=== PATIENT | female | born 1955 | race Caucasian/White ===

== ENCOUNTER → 2016-03-01 | Outpatient (CLI) | payer SELFPAY | LOC: YCFC.O 10:39 | PROVIDERS: ATTEND Nurse Practitioner Family | DX: J06.9 Acute upper respiratory infection, unspecified (principal) ==

== ENCOUNTER → 2016-09-25 | Outpatient (CLI) | payer SELFPAY ==
--- NOTE | 2016-09-25 13:47 | RAD ---
EXAM DESCRIPTION: Ankle,Left 3 Views CLINICAL HISTORY: 61 years, Female, PAIN IN LEFT ANKLE COMPARISON: None. TECHNIQUE: AP/lateral/oblique of the ankle FINDINGS: There is no bone, joint, or soft tissue abnormality. Mortise joint shows normal relationship. IMPRESSION: 1. Normal Electronically signed by: Cali Cervantes MD 09/25/2016 1:46 PM CDT
== END | disposition home or self-care (01) ==
LOC: RAD 08:42
PROVIDERS: ATTEND Orthopaedic Surgery
DX: M25.572 Pain in left ankle and joints of left foot (principal)

== ENCOUNTER → 2018-03-06 | Outpatient (CLI) | payer BC ==
--- NOTE | 2018-03-06 10:05 | RAD ---
EXAM DESCRIPTION: Chest,2 Views: CHLOE/ CLINICAL HISTORY: 63 years Female FLU COMPARISON: 2 view chest x-ray 06/15/2006. TECHNIQUE: Two views. PA and Lateral. FINDINGS: Lungs: Moderate expansion with no acute infiltrate. Pleural spaces: No effusion or pneumothorax bilaterally. Heart: Normal size. Pulmonary Vascularity: Not increased. Mediastinum: Not widened. Aorta: Unremarkable. Bony Thorax/Spine: No acute bony thoracic abnormalities. Thoracic disc space narrowing at some levels. IMPRESSION: No radiographic evidence of acute cardiopulmonary disease. Electronically signed by: Pete Roy MD 03/06/2018 10:03 AM [facility]
== END ==
LOC: LAB.O 09:31
PROVIDERS: ATTEND Family Medicine
DX: J11.1 Influenza due to unidentified influenza virus with other respiratory manifestations (principal); E11.9 Type 2 diabetes mellitus without complications

== ENCOUNTER → 2018-03-26 | Outpatient (CLI) | payer BC ==
--- NOTE | 2018-03-26 19:51 | US ---
EXAM DESCRIPTION: Soft Tissue,Head/Neck: ULTRASOUND. CLINICAL HISTORY: 63 years Female NECK MASS onset over 3 years ago. No pain. No change in size. COMPARISON: None Available. TECHNIQUE: Transcutaneous scanning: Lugo-scale and Doppler modes. FINDINGS: Scanning in the midline posterior neck palpable mass. Homogeneous fatty texture mass with wider than tall orientation and posterior acoustic enhancement. Dimensions 2.1 x 0.7 x 2.0 cm. Echogenic capsule. Nonvascular. No fluid component. Surrounded by subcutaneous adipose tissue Second area palpable shows subcutaneous adipose tissue. No distinct cyst. No dominant mass. No parenchymal edema or large calcifications. No overlying skin changes. Normal vascularity. IMPRESSION: Most likely 2.1 cm x 2 cm disc shaped lipoma in the posterior midline neck. No abnormal solid mass or cyst. Not vascular. Electronically signed by: Pete Roy MD 03/26/2018 7:48 PM [employer]
== END ==
LOC: US 11:56
PROVIDERS: ATTEND Surgery
DX: R22.1 Localized swelling, mass and lump, neck (principal)

== ENCOUNTER → 2018-05-06 | Outpatient (CLI) | payer BC ==
--- NOTE | 2018-05-07 11:00 | MAM ---
EXAM DESCRIPTION: 3D Diagnostic, Bilateral: Digital Mammography CLINICAL HISTORY: 63 yearsFemaleLUMP generalized lungs left breast.. Lifetime risk of developing breast cancer (Tyrer-Cuzick model) percentage is not calculated. COMPARISON: 2-D digital screening bilateral mammography 12/25/2014. . No prior reports available TECHNIQUE: Bilateral CC, MLO, and LM projection full-field images, digital mammographic tomosynthesis technique. Bilateral 2-D digital full-field MLO images. CAD not available FINDINGS: The breast parenchymal density pattern is: Heterogeneously dense breast tissue, which may obscure small masses. No skin thickening or nipple retraction lymph nodes in the left axilla and axillary tail. Lymph nodes in the right axillary tail. Small solitary microcalcifications. No new focal, stellate mass or density, focal asymmetry , and no suspicious microcalcifications bilaterally. Stable mammograms compared to prior study, taking into account differences in mammographic technique IMPRESSION: Benign exam. BIRAD CATEGORY: 2 BENIGN FINDINGS. RECOMMENDATIONS: FOLLOW UP: Routine digital bilateral mammographic screening, one year interval from May 2018. Written communication explaining the IMPRESSION and follow-up, will be mailed to the patient and referring health care provider. According to the [employer], yearly mammograms are recommended starting at age 40 and continuing as long as a woman is in good health. Any breast change noted on a breast self-exam should be reported promptly to the patient's healthcare provider. Breast MRI is recommended for women with an approximately 20-25% or greater lifetime risk of breast cancer, including women with a strong family history of breast or ovarian cancer and women who have been treated for Hodgkin's disease. A negative mammographic report should not delay tissue diagnosis in patients with significant clinical history or physical findings. Extremely dense breast tissue limits the sensitivity of digital mammography. Electronically signed by: Pete Roy MD 05/07/2018 10:57 AM CDT
== END ==
LOC: MAMMO 14:07
PROVIDERS: ATTEND Nurse Practitioner Family
DX: N63.0 Unspecified lump in unspecified breast (principal)
CPT/HCPCS: 77066; G0279

== ENCOUNTER → 2018-05-20 | Outpatient (CLI) | payer BC ==
--- NOTE | 2018-05-20 16:09 | RAD ---
EXAM DESCRIPTION: Foot,Left 3 Views CLINICAL HISTORY: 63 years, Female, Other hammer toe(s) COMPARISON: None TECHNIQUE: AP, lateral, and oblique views of the left foot FINDINGS: The great toe is normally aligned with mild degenerative change at the base of the toe. There is mild to modest hammertoe deformity of toes two through four and there is fusion of the middle and distal phalanx of the fifth toe with slight claw toe deformity of this toe. The metatarsals are intact. Remainder the foot is unremarkable without calcaneal spurring. IMPRESSION: Hammertoe deformity of toes two through four and mild claw toe deformity of the fifth toe with fusion of the middle and distal phalanx. Electronically signed by: Brock Kim MD 05/20/2018 4:05 PM CDT
== END ==
LOC: RAD 12:03
PROVIDERS: ATTEND Podiatrist Foot & Ankle Surgery
DX: M20.42 Other hammer toe(s) (acquired), left foot (principal); M20.5X2 Other deformities of toe(s) (acquired), left foot

== ENCOUNTER → 2018-11-11 | Outpatient (CLI) | payer BC | LOC: GMAE 10:56 | PROVIDERS: ATTEND Family Medicine | DX: Z79.899 Other long term (current) drug therapy (principal) ==

== ENCOUNTER 2018-12-02 05:13 | Day surgery (SDC) | payer BC ==
[2018-12-02] MEDS ORDERED: LACTATED RINGERS 1,000 ML ONE ×2 (07:14→10:38)
[2018-12-02] MEDS ORDERED: MIDAZOLAM INJ 2 MG/2 ML VIAL ONE (09:34)
[2018-12-02] MEDS ORDERED: LIDOCAINE 1% 10 ML VIAL INJ ONE (10:00)
[2018-12-02] MEDS ORDERED: PROPOFOL 200 MG/20 ML VIAL IV ONE (10:00)
[2018-12-02] MEDS ORDERED: ONDANSETRON INJ 4 MG/2 ML VIAL ONE (10:10)
--- NOTE | 2018-12-02 10:29 | OP ---
DATE OF PROCEDURE: 12/02/18 PREOPERATIVE DIAGNOSIS: 1. Screening colonoscopy. POSTOPERATIVE DIAGNOSIS: 1. Screening colonoscopy. PROCEDURE: 1. Colonoscopy to cecum. SURGEON: Jefry Crowder MD ANESTHESIA: General. FINDINGS: Normal colon. COMPLICATIONS: None. ESTIMATED BLOOD LOSS: None. CONDITION: Stable. PLAN: Discharge. INDICATION: As stated. PROCEDURE: General anesthesia was induced. She was placed in lateral position, comfortable. Digital rectal exam was normal. The colonoscope was then passed without much difficulty to the cecum with an adequate prep. Upon withdrawal, no significant polyps were seen. No complications. The patient tolerated the procedure. She was then awakened and taken to Recovery to be discharged. #[id number] [facility]
[2018-12-02] MEDS ORDERED: MORPHINE SULFATE INJ 10 MG/ML VIAL ONE (10:36)
[2018-12-02] MEDS ORDERED: KETOROLAC TROMETHAMINE INJ 30 MG/ML VIAL ONE (11:28)
--- NOTE | 2018-12-02 11:42 | CT ---
EXAM DESCRIPTION: Abdomen/Pelvis w/o Contrast: Computed Tomography. CLINICAL HISTORY: 63 years Female s/p colonoscopy. Pain scale 8/10 during recovery. COMPARISON: None. TECHNIQUE: Spiral-axial scans 2.5 x 2.5 mm intervals through the abdomen and pelvis without oral or IV contrast. Coronal and sagittal 2.0 mm reconstructions. Total Exam DLP: 873.78 mGy-cm. This exam was performed according to our departmental CT dose-optimization program which includes automated exposure control, adjustment of the mA and/or kV according to patient size and/or use of iterative reconstruction technique; to reduce radiation dose to as low as reasonably achievable (ALARA). FINDINGS: Small Bowel: Normal caliber with minimal gas. No mucosal thickening. Terminal Ileum/Cecum: Cecum distended by gas, with TI containing minimal gas with no mucosal thickening. Appendix not seen. Colon: Distended by gas throughout with less distention in the sigmoid colon which is moderately redundant. Several diverticula in the sigmoid containing gas. No free air under the anterior abdominal wall or abutting segments of colon. No fatty stranding. Lung bases and pleura: Groundglass densities in the inferior lingula, not focal nodules. Also linear scarring in the lingula. Groundglass subpleural densities in the superior anterior and lateral left lower lobe. Liver, stomach, spleen, and adrenal glands: Long axis of the right middle lobe 18.5 cm. Minimal fatty replacement. Spleen, adrenal glands normal size and density. Stomach unremarkable. Pancreas, Gallbladder, and Ducts: Surgical clips in the gallbladder fossa with no fluid. Pancreas is negative. Kidneys and Ureters: Unremarkable. Mesentery: No fatty stranding free air or free fluid. Aorta: Negative. Pelvic Organs: Urinary bladder minimally distended. Small uterus anteverted. Right ovary larger than left. No abnormal calcifications and no fluid in the cul-de-sac. Spine and Bony Pelvis: Minimal spondylosis in the included thoracic spine. Early arthrosis superior lateral right acetabulum. Abdominal Wall/Back Soft Tissues: Negative. IMPRESSION: 1. Physiologic distention of the colon by a air status post colonoscopy with no free air or free fluid. No pericolonic air collections. Minimal air in diverticula. No other complications. 2. Groundglass densities in the inferior lingula and the lateral aspect of the left lower lobe. Consider follow-up chest CT scan without IV contrast or enrolling patient in current low-dose CT lung cancer screening program at [facility], if patient meets screening criteria. 3. Minimal steatosis of the liver and minimal hepatomegaly. CRITICAL COMMUNICATION: The critical value was discussed directly by phone by Dr. Roy, with Dr. Crowder at approximately 1105 hours, on 02 December 2018. Electronically signed by: Pete Roy MD 12/02/2018 11:41 AM CDT
[2018-12-02 13:56] VITALS: O2SAT 98
[2018-12-02 13:58] VITALS: BP 123/70; TEMP 96.2
== END 2018-12-02 12:40 | disposition home or self-care (01) ==
LOC: AMB 05:13
PROVIDERS: ATTEND Surgery
DX: Z12.11 Encounter for screening for malignant neoplasm of colon (principal); E11.9 Type 2 diabetes mellitus without complications; G25.81 Restless legs syndrome; Z85.810 Personal history of malignant neoplasm of tongue; Z79.84 Long term (current) use of oral hypoglycemic drugs; Z79.899 Other long term (current) drug therapy
CPT/HCPCS: 00812; 36416; 45378; 74176; 82948; J1885; J2250; J2270; J2405; J3490; J7120

== ENCOUNTER → 2018-12-23 | Outpatient (CLI) | payer BC ==
--- NOTE | 2018-12-21 07:03 | CT ---
EXAM DESCRIPTION: Chest w/o Contrast CLINICAL HISTORY: 63 years, Female, ABNORMAL FINDINGS IN THE LUNGS COMPARISON: CT abdomen December 02, 2018 included the lower chest. Previous chest x-ray March 06, 2018 TECHNIQUE: Thin-section noncontrast axial CT images are obtained according to our protocol. Reconstructed MPR images are created and reviewed as well. FINDINGS: Lungs: Infiltrate in the lingula seen on the previous study has cleared. Findings are consistent with resolution of pneumonia. No consolidating infiltrate in other areas of the lungs. No pneumothorax or pleural effusion. Nodule in the posterior segment right upper lobe measures 6 mm in diameter. This is not seen on either of the previous two studies. This is dense enough to appear on the mediastinal window images. However it is not definitely calcified and therefore follow-up is recommended as per Fleischner Society criteria below. Mediastinum: Lymph nodes are normal in size. Normal vascular contours. Heart size is normal with no pericardial effusion. Chest wall/axilla: No mass or adenopathy. Breast tissue appears symmetrical. Lower neck/supraclavicular: No mass or adenopathy. Normal thyroid gland. Upper abdomen: Low density liver consistent with diffuse hepatic steatosis. The gallbladder is surgically absent. Otherwise unremarkable upper abdominal viscera. IMPRESSION: Interval clearance of left lingular infiltrate. Posterior segment right upper lobe lung nodule 6 mm. Follow-up as per recommendations below. 2017 Fleischner Society Recommendations for Single Solid Lung Nodule Follow-Up based on size (average of long- and short-axis diameters) 6-8 mm Low-Risk Patient: CT at 6-[address] at 18-24 months 6-8 mm High-Risk Patient: CT at 6-[address] at 18-24 months This exam was performed according to our departmental dose-optimization program, which includes automated exposure control, adjustment of the mA and/or kV according to patient size and/or use of iterative reconstruction technique. Total DLP equals 354.94 mGycm. Electronically signed by: Ryan Fermin MD 12/21/2018 7:01 AM [facility]
== END | disposition home or self-care (01) ==
LOC: CT 13:42
PROVIDERS: ATTEND Family Medicine
DX: R91.8 Other nonspecific abnormal finding of lung field (principal)

== ENCOUNTER → 2019-07-25 | Outpatient (CLI) | payer MEDICARE | LOC: YCFC.O 11:02 | PROVIDERS: ATTEND Family Medicine | DX: E11.9 Type 2 diabetes mellitus without complications (principal); R53.83 Other fatigue ==

== ENCOUNTER → 2019-10-27 | Outpatient (CLI) | payer MEDICARE ==
--- NOTE | 2019-10-27 10:40 | MRI ---
EXAM DESCRIPTION: Brain w/oContrast CLINICAL HISTORY: 64 years Female, TRIGEMINAL NEURALGIA COMPARISON: None. TECHNIQUE: Multisequence, multiplanar images of the brain obtained without intravenous contrast. FINDINGS: Brain Parenchyma, Ventricles, Meninges: No restricted diffusion. No acute intracranial hemorrhage. Mild general cerebral atrophy. No abnormal signal alteration of the brain parenchyma. No abnormal extra-axial fluid collection. Vascular Structures: Normal flow voids for the major intracranial arteries and dural venous sinuses. Calvarium, paranasal sinuses, mastoids, and orbits: No abnormal calvarial or skull base marrow signal changes. Mild mucosal thickening of ethmoid and left greater the right maxillary sinuses. Remaining paranasal sinuses and mastoids are clear. Grossly unremarkable orbits. IMPRESSION: 1. No acute intracranial abnormality. 2. Mild senescent changes. 3. Mild ethmoid and maxillary sinus disease. Electronically signed by: Eduardo Franco MD 10/27/2019 10:38 AM CDT
== END ==
LOC: MRI 09:05
PROVIDERS: ATTEND Family Medicine
DX: G50.0 Trigeminal neuralgia (principal); G31.89 Other specified degenerative diseases of nervous system; J34.9 Unspecified disorder of nose and nasal sinuses

== ENCOUNTER → 2019-11-11 | Outpatient (CLI) | payer MEDICARE | LOC: YCFC.O 09:50 | PROVIDERS: ATTEND Family Medicine | DX: E11.9 Type 2 diabetes mellitus without complications (principal); R74.8 Abnormal levels of other serum enzymes ==

== ENCOUNTER → 2019-11-13 | Outpatient (CLI) | payer MEDICARE ==
--- NOTE | 2019-11-14 08:19 | CT ---
EXAM DESCRIPTION: Chest w/o Contrast CLINICAL HISTORY: 64 years Female, abnormal finding on diagnostic imaging COMPARISON: CT chest 12/21/2018. TECHNIQUE: CT images through the chest without IV contrast. Multiplanar reformations provided. This exam was performed according to our departmental dose-optimization program, which includes automated exposure control, adjustment of the mA and/or kV according to patient size and/or use of iterative reconstruction technique. CT CHEST FINDINGS: Heart and mediastinum: Normal heart size. No pericardial effusion. Unremarkable esophagus. Mild atherosclerosis. Scattered based on lymph nodes measuring 6 mm short axis right paratracheal. No appreciable mediastinal adenopathy although evaluation limited without intravenous contrast. Thyroid Gland: Normal. Lungs: Unchanged 6 mm round solid pulmonary nodule in the posterior lateral inferior right upper lobe on series 4 image 51. Airways: Normal. Pleura: Normal. Musculoskeletal and Soft Tissues: No acute fracture or aggressive appearing osseous lesion. Soft tissues unremarkable. Subphrenic Structures: Hypoattenuation of the liver. Gallbladder surgically absent. IMPRESSION: 1. No acute abnormality of the chest findings noncontrast study. 2. 6 mm pulmonary nodule right upper lobe, unchanged from 12/20/2018. Single Solid lung nodule 6-8 mm: In a low-risk patient, recommend a non-contrast Chest CT at 6-12 months, then consider an additional non-contrast Chest CT at 18-24 months. In a high-risk patient, recommend a non-contrast Chest CT at 6-12 months, then another non-contrast Chest CT at 18-24 months. These guidelines do not apply to patients younger than 35 years, immunocompromised patients, and patients with cancer. F/u in patients with significant comorbidities as clinically warranted. For lung cancer screening, adhere to Lung-RADS guidelines. Reference: Radiology. 2017 Aug; 284(1):228-24 Electronically signed by: Eduardo Franco MD 11/14/2019 8:18 AM CDT
== END ==
LOC: CT 10:30
PROVIDERS: ATTEND Family Medicine
DX: R91.1 Solitary pulmonary nodule (principal); R93.89 Abnormal findings on diagnostic imaging of other specified body structures

== ENCOUNTER → 2019-11-18 | Outpatient (CLI) | payer MEDICARE ==
--- NOTE | 2019-11-18 09:43 | RAD ---
EXAM DESCRIPTION: Knee,Right Complete CLINICAL HISTORY: 64 years, Female, PAIN IN RIGHT KNEE COMPARISON: None TECHNIQUE: Three x-ray views of the right knee FINDINGS: No fracture or dislocation. Bones appear normally mineralized with normal trabecular pattern. Narrow medial compartment of the right knee joint with medial joint line spurring and mild spurring at the tibial spines. Mild posterior patellar spurring. Normal appearance of medial and lateral compartments on frontal view. Lateral view shows normal position of the patella. No patellar spurring or enthesopathy. No suprapatellar knee joint effusion. Normal contour of quadriceps and patellar tendons. Mild lateral tilt of the patella without subluxation on patellar sunrise view. Edematous changes are seen along the medial aspect of the knee joint. IMPRESSION: Degenerative narrowing of the medial compartment. Electronically signed by: Ryan Fermin MD 11/18/2019 9:42 AM CDT
== END ==
LOC: YCFC.O 09:18
PROVIDERS: ATTEND Family Medicine
DX: M17.11 Unilateral primary osteoarthritis, right knee (principal)

== ENCOUNTER → 2019-12-23 | Outpatient (CLI) | payer MEDICARE ==
--- NOTE | 2019-12-24 13:33 | MAM ---
EXAM DESCRIPTION: 3D Screening BILATERAL : Digital Mammography. CLINICAL HISTORY: 64 years Female Yearly screen . No complaints. Remote family history of breast cancer. Menarche age 10. Childbirth age 25. Menopause age 51. No HRT. Lifetime risk of developing breast cancer (Tyrer-Cuzick model)(%): 7.6. COMPARISON: Bilateral diagnostic digital breast tomosynthesis May 2018.. TECHNIQUE: Bilateral CC and MLO projection full-field images, digital tomosynthesis mammographic technique. Bilateral digital 2-D full-field MLO images. CAD available for 2-D images. FINDINGS: The breast parenchymal density pattern is: Scattered areas of fibroglandular density. No skin thickening or nipple retraction. Axillary nodes, solitary microcalcifications. No new focal, stellate mass or density, focal asymmetry , and no suspicious microcalcifications bilaterally. Increased fatty replacement in both breasts since the prior study. IMPRESSION: Benign exam. BIRAD CATEGORY: 2 BENIGN FINDINGS. RECOMMENDATIONS: FOLLOW UP: Routine digital bilateral mammographic screening, one year interval from December 2019. Written communication explaining the IMPRESSION and follow-up, will be mailed to the patient and referring health care provider. According to the [employer], yearly mammograms are recommended starting at age 40 and continuing as long as a woman is in good health. Any breast change noted on a breast self-exam should be reported promptly to the patient's healthcare provider. Breast MRI is recommended for women with an approximately 20-25% or greater lifetime risk of breast cancer, including women with a strong family history of breast or ovarian cancer and women who have been treated for Hodgkin's disease. A negative mammographic report should not delay tissue diagnosis in patients with significant clinical history or physical findings. Extremely dense breast tissue limits the sensitivity of digital mammography. Electronically signed by: Pete Roy MD 12/24/2019 1:31 PM [facility]
== END ==
LOC: MAMMO 10:00
PROVIDERS: ATTEND Family Medicine
DX: Z12.31 Encounter for screening mammogram for malignant neoplasm of breast (principal)

== ENCOUNTER → 2020-03-01 | Outpatient (CLI) | payer MEDICARE | LOC: YCFC.O 10:24 | PROVIDERS: ATTEND Nurse Practitioner Family | DX: Z20.828 Contact with and (suspected) exposure to other viral communicable diseases (principal); R50.9 Fever, unspecified ==

== ENCOUNTER → 2020-03-09 | Outpatient (CLI) | payer MEDICARE | LOC: YCFC.O 09:25 | PROVIDERS: ATTEND Family Medicine | DX: E11.9 Type 2 diabetes mellitus without complications (principal) ==

== ENCOUNTER → 2020-03-16 | Outpatient (CLI) | payer MEDICARE | LOC: YCFC.O 10:41 | PROVIDERS: ATTEND Nurse Practitioner Family | DX: R19.7 Diarrhea, unspecified (principal); N39.0 Urinary tract infection, site not specified ==